=== PATIENT | male | born 2005 | race Two or more races ===

== ENCOUNTER 2024-03-31 17:25 | Emergency (ER) | payer MEDICAID, OTHER ==
[~2024-03-31] VITALS: Ht 177.8 cm; Wt 57.0 kg
[2024-03-31 21:34] VITALS: BP 110/73; PULSE 68; RESP 12; TEMP 97.7; O2SAT 100
--- NOTE | 2024-03-31 21:53 | ED.PDOC ---
History of Present Illness(SKN HPI Comments PT PRESENTED TO THE ER WITH C/C OF WOUND CHECK AND MED REFILL PT STATES HE WAS SEEN BY [facility] IN JANUARY, AND WAS DX WITH PSORISIS AND WAS GIVEN A RX. HE STATES HE FINISHED HIS RX AND NOW NEEDS A REFILL. Chief Complaint: Wound Check Time Seen by MD: 18:06 History of Present Illness: Nurses Notes, Medications, Allergies Home Meds Active Scripts Triamcinolone Acetonide (Triamcinolone Acetonide) 0.5 % Cre, 1 APPLIC EX BID for 30 Days, #15 GRAMS 1 Refill Prov:SHARLA KIM LUKASZ 03/31/24 Information Source: Patient Mode of Arrival: Ambulatory Severity: Moderate Past Medical History Past Medical History (Other): PSORIASIS Surgical History: Denies all surgeries Family History Family History: Reviewed,noncontributory to illness, No family hx of Cancer, No family hx of DM, No family hx of Heart terry, No family hx of HTN, No family hx ofKidney terry, No family hx of Liver terry, No family hx of Lung terry, No family hx of Stroke Social History Smoker: Non-Smoker Alcohol: Denies ETOH Use Drugs: Denies Drug Use Constitutional: denies: chills, diaphoresis, fatigue, fever, malaise, sweats, weakness, others EENTM: denies: blurred vision, double vision, ear bleeding, ear discharge, ear drainage, ear pain, ear ringing, eye pain, eye redness, hearing loss, mouth pain, mouth swelling, nasal discharge, nose bleeding, nose congestion, nose pain, photophobia, tearing, throat pain, throat swelling, voice changes, others Respiratory: denies: cough, hemoptysis, orthopnea, SOB at rest, shortness of breath, SOB with excertion, stridor, wheezing, others Cardiovascular: denies: chest pain, dizzy spells, diaphoresis, Dyspnea on exertion, edema, irregular heart beat, left arm pain, lightheadedness, palpitat ions, PND, syncope, others Gastrointestinal: denies: abdomen distended, abdominal pain, blood streaked bow els, constipated, diarrhea, dysphagia, difficulty swallowing, hematemesis, melena, nausea, poor appetite, poor fluid intake, rectal bleeding, rectal pain, vomiting, others Genitourinary: denies: burning, dysuria, flank pain, frequency, hematuria, incontinence, penile discharge, penile sore, pain, testicle pain, testicle swelling, urgency, others Neurological: denies: dizziness, fainting, headache, left sided numbness, left sided weakness, numbness, paresthesia, pre-existing deficit, right sided numbness, right sided weakness, seizure, speech problems, tingling, tremors, weakness, others Musculoskeletal: denies: back pain, gout, joint pain, joint swelling, muscle pain, muscle stiffness, neck pain, others Integumetry: reports: rash (BILATERAL HAND); denies: bruises, change in color, change in hair/nails, dryness, laceration, lesions, lumps, wounds, others Allergic/Immunocompromised: denies: Difficulty Healing, Frequent Infections, Hives, Itching, others Hematologic/Lymphatic: denies: anemia, blood clots, easy bleeding, easy bruising, swollen glands, others Endocrine: denies: excessive hunger, excessive sweating, excessive thirst, excessive urination, flushing, intolerance to cold, intolerance to heat, unexplained weight gain, unexplained weight loss, others Psychiatric: denies: anxiety, bipolar disorder, depression, hopeless, panic disorder, schizophrenia, sleepless, suicidal, others Physical Exam General Appearance: No Apparent Distress, Normal HEENT: Normal ENT Inspection, Pharynx Normal, TMs Normal Neck: Full Range of Motion, Non-Tender Respiratory: Lungs Clear, No Respiratory Distress, Normal Breath Sounds Cardiovascular: No Murmur, Normal Peripheral Pulses, Regular Rate/Rhythm Breast Exam: Deferred Gastrointestinal: No Organomegaly, Non Tender, Soft Genitalia: Deferred Pelvic: Deferred Rectal: Deferred Extremities: Normal capillary refill, Normal inspection, Normal range of motion, Non-tender, No pedal edema Musculoskeletal : Apperance: Normal Neurologic: Alert, asbestos abatement technician II-XII nml as Tested, No Motor Deficits, Normal Affect, Normal Mood, No Sensory Deficits Cerebellar Function: Normal Reflexes: Normal Skin: Dry, Normal Color, Rash (DRY SCALY PATCHY RASH NOTED BILATERAL DORSUM ASPECT HANDS EXCORIATIONS, DRAINAGE OR ERYTHEMA), Warm Lymphatic: No Adenopathy Was a procedure done? Was a procedure done?: No Differential Diagnosis (INTG) Differential Diagnosis: Atopic dermatitis, Candidiasis, Impetigo X-Ray, Labs, Meds, VS Vital Signs Date Time Temp Pulse Resp B/P (MAP) Pulse Ox O2 Delivery O2 Flow Rate FiO2 03/31/24 21:34 97.7 68 12 110/73 (85) 97.7 03/31/24 21:34 68 12 100 Room Air 03/31/24 21:23 97.7 68 12 110/73 (85) 100 97.7 03/31/24 18:17 97.9 73 18 117/70 (86) 100 X-Ray, Labs, Meds, VS Comment MEDICATION REFILLED. FOLLOW-UP WITH PCP IN 1 TO 2 DAYS. TAKE MEDICATIONS DC ESCRIBED. RETURN TO ED FOR ANY NEW OR WORSENING SYMPTOMS. Time of 1ST Reevaluation: 21:53 Reevaluation 1ST: Unchanged Patient Education/Counseling: Diagnosis, Treatment, Prognosis, Need For Follow Up Family Education/Counseling: No Family Present Departure 1 Departure Time of Disposition: 21:53 Impression: Primary Impression: Psoriasis Disposition: 01 HOME / SELF CARE / HOMELESS Condition: Stable e-Prescriptions Triamcinolone Acetonide (Triamcinolone Acetonide) 0.5 % Cre 1 APPLIC EX BID for 30 Days, #15 GRAMS 1 Refill Prov: SHARLA KIM 03/31/24 Discharged With: Self Critical Care Note Critical Care Time?: No Stability Stability form required: SHARLA Gallardo Mar 31, 2024 21:53
[2024-03-31] MEDS ORDERED: TRIA0.5C EX (21:59)
== END 2024-03-31 22:02 | disposition home or self-care (01) ==
LOC: ER 17:25
DX: L40.9 Psoriasis, unspecified (principal); Z76.0 Encounter for issue of repeat prescription